=== PATIENT | female | born 1980 | race Caucasian/White ===

== ENCOUNTER 2017-05-10 10:42 | Emergency (ER) | payer OTHER ==
[2017-05-10 11:21] VITALS: BP 120/75
--- NOTE | 2017-05-10 11:32 | UC ---
Throat Pain/Nasal Clark HPI - HPI Summary HPI Summary: 36 y/o female presents to the urgent care c/o sore throat, intermittent bilateral ear pain, dry cough, sinus pressure and watery eyes for the past 2 days. Pt reports SAENZ is 6/10 with mild body aches. She took a Tylenol PO yesterday to alleviate symptoms. Nasal discharge is clear with clear watery eyes. Pt denies fever, chest pain, dizziness, N/V/D - History of Current Complaint Chief Complaint: UCGeneralIllness Stated Complaint: SORE THROAT HEADACHE EARS Time Seen by Provider: 05/10/17 11:29 Hx Obtained From: Patient Hx Last Menstrual Period: 05/08/17 Onset/Duration: Gradual Onset, Lasting Days - 2 days, Worse Since - today Severity: Moderate Pain Intensity: 6 Pain Scale Used: 0-10 Numeric Cough: Nonproductive Associated Signs & Symptoms: Positive: Sinus Discomfort, Nasal Discharge, Other - body aches and SAENZ. Negative: Fever - Epiglottits Risk Factors Epiglottis Risk Factors: Negative - Allergies/Home Medications Allergies/Adverse Reactions: Allergies Allergy/AdvReac Type Severity Reaction Status Date / Time No Known Allergies Allergy Verified 05/10/17 11:21 PMH/Surg Hx/FS Hx/Imm Hx Previously Healthy: Yes - Pt deneis PMHX Other History Of: Negative For: HIV, Hepatitis B, Hepatitis C, Anticoagulant Therapy - Surgical History Surgical History: Yes Surgery Procedure, Year, and Place: T&A, 1986, [place] - Family History Known Family History: Positive: Cardiac Disease Negative: Respiratory Disease - Social History Occupation: Employed Full-time Lives: With Family Alcohol Use: None Substance Use Type: None Smoking Status (MU): Never Smoked Tobacco - Immunization History Most Recent Influenza Vaccination: Not the 2015/2016 Season Review of Systems Constitutional: Other - body aches Skin: Negative Eyes: Negative ENT: Sore Throat, Ear Ache - B/L, Nasal Discharge, Sinus Congestion Respiratory: Cough - dry Cardiovascular: Negative Gastrointestinal: Negative Genitourinary: Negative Motor: Negative Neurovascular: Negative Musculoskeletal: Negative Neurological: Headache Psychological: Negative Is Patient Immunocompromised?: No All Other Systems Reviewed And Are Negative: Yes Physical Exam Triage Information Reviewed: Yes Vital Signs: Initial Vital Signs Temp 98.6 F 05/10/17 11:18 Pulse 78 05/10/17 11:18 Resp 16 05/10/17 11:18 BP 120/75 05/10/17 11:18 Pulse Ox 98 05/10/17 11:18 - Additional Comments VITAL SIGNS: Reviewed. GENERAL: Patient is a well developed and nourished female who is sitting comfortable in the examining table. Patient is not in any acute respiratory distress. HEAD AND FACE: No signs of trauma. No ecchymosis, hematomas or skull depressions. No sinus tenderness. EYES: PERRLA, EOMI x 2, No injected conjunctiva, no nystagmus. No photophobia. EARS: Hearing grossly intact. Ear canals and tympanic membranes are within normal limits. MOUTH: Positive pharynx with mild erythema,no exudates, no palatal petechiae. No tonsils. Uvula in midline.Nose: edematous, erythematous nasal mucosa with yellowish nasal discharge NECK: Supple, trachea is midline, Positive anterior cervical lymphadenopathy, no JVD, no carotid bruit, no c-spine tenderness, neck with full ROM. No meningeal signs, no Kernig's or brudzinskis signs. CHEST: Symmetric, no tenderness at palpation LUNGS: Clear to auscultation bilaterally. No wheezing or crackles. CVS: Regular rate and rhythm, S1 and S2 present, no murmurs or gallops appreciated. ABDOMEN: Soft, non-tender. No signs of distention. No rebound no guarding, and no masses palpated. Bowel sounds are normal. EXTREMITIES: FROM in all major joints, no edema, no cyanosis or clubbing. NEURO: Alert and oriented x 3. No acute neurological deficits. Speech is normal and follows commands. SKIN: Dry and warm Throat Pain/Nasal Course/Dx - Course Course Of Treatment: 36 y/o female presents to the urgent care c/o sore throat , intermittent bilateral ear pain, dry cough, sinus pressure and watery eyes for the past 2 days. Pt reports SAENZ is 6/10 with mild body aches. She took a Tylenol PO yesterday to alleviate symptoms. Nasal discharge is clear with clear watery eyes. Pt denies fever, chest pain, dizziness, N/V/D. Hx obtained.Pt with URI on examination. Pt with pharyngitis on examination.Influenza A&B ordered: result: Influenza B positive.Pt Rx Tamiflu and ibuprofen PO to alleviates symptoms. Advised on hand washing and wear a mask to avoid spreading. Pt advised to rest, increase fluid intake, eat well and avoid strenuous exercise. If symptoms do not improve or worsen advised to return to the urgent care or f/ u with her PCP for further evaluation and treatment. Pt understood and agreed with plan of care. - Differential Dx/Diagnosis Differential Diagnosis/HQI/PQRI: Influenza, Laryngitis, Mononucleosis, Otitis Media, Pharyngitis, Sinusitis, Tonsillitis, URI Provider Diagnoses: 1- Influenza B. 2- Headache Discharge - Discharge Plan Condition: Stable Disposition: HOME Prescriptions: Ibuprofen TAB* [Motrin TAB* 800 MG] 800 mg PO Q6H PRN #20 tab PRN Reason: Headache Oseltamivir CAP* [Tamiflu CAP*] 75 mg PO BID #10 cap Patient Education Materials: Influenza (ED) Forms: *Work Release Referrals: TALYA Patino [Primary Care Provider] - 3 Days Additional Instructions: 1- Please take the full course of the antiviral to avoid resistance. Encourage hand washing and wear a mask to avoid spreading. 2-Please continue taking Tylenol PO q6-8hrs prn as instructed after meals to alleviate fever, and sore throat. Increase fluid intake, eat well, rest and avoid strenuous exercise 3-If symptoms do not improve or worsen please return to the urgent care or f/u with your PCP in 2 days for further evaluation and treatment.
== END 2017-05-10 12:11 | disposition home or self-care (01) ==
LOC: UCCORT 10:42
DX: J11.1 Influenza due to unidentified influenza virus with other respiratory manifestations (principal); R51 Headache
CPT/HCPCS: 87502; 99212; G0463